=== PATIENT | female | born 1965 | race African-American/Black ===

== ENCOUNTER 2019-01-02 08:13 | Day surgery (SDC) | payer MEDICAID ==
[2019-01-02] VITALS (11 sets, daily range): BP systolic 94–138; BP diastolic 58–87; PULSE 88–107; TEMP 97.5–98.4
[~2019-01-02] VITALS: Ht 170.2 cm; Wt 129.0 kg
[~2019-01-02 08:13] MED LIST: ASCRIPTIN1 TAB PO; CYMBALTA 60MG60 MG PO; LOPRESSOR 550 MG/TAB PO; NORCO 325 MG-101 TAB PO; SYNTHROID0.1 MG/TAB PO
[2019-01-02] MEDS ORDERED: ASPIRIN E.C. 8181 MG PO (08:59)
[2019-01-02] MEDS ORDERED: KLONOPIN WAFE0.25 MG SL (09:09)
[2019-01-02] MEDS ORDERED: FLEXERIL 1010 MG/TAB PO (09:10)
[2019-01-02] MEDS ORDERED: BENTYL 20MG20 MG/TAB PO (09:12)
[2019-01-02] MEDS ORDERED: DESYREL 100MG100 MG PO (09:13)
[2019-01-02] MEDS ORDERED: MAXALT5 MG SL (09:14)
[2019-01-02] MEDS ORDERED: NEURONTIN800 MG/TAB (09:15)
[2019-01-02] MEDS ORDERED: PRIL40 PO (09:15)
[2019-01-02] MEDS ORDERED: NEURONTIN800 MG/TAB PO (09:16)
[2019-01-02 09:56] LABS: HEMATOCRIT 38.9 % (37.0-47.0); MEAN CELL VOLUME 92 fl (80.0-100.0); MEAN CORPUSCULAR HEMOGLOBIN 29 pg (27.0-31.0); MEAN CORPUSCULAR HGB CONC 31 g/dl (33.0-37.0); MEAN PLATELET VOLUME 9.3 fl (7.4-10.4); PLATELET COUNT 227 K/mm3 (130-400); RED BLOOD COUNT 4.21 M/mm3 (4.10-5.30); REDCELL DISTRIBUTION WIDTH-CV 12.1 % (11.5-14.5)
[2019-01-02 10:01] LABS: INR 0.9 (0.8-3.0); PROTHROMBIN TIME 10.8 SECONDS (9.7-12.8)
[2019-01-02] MEDS ORDERED: ZESTRIL 5MG5 MG PO (10:32)
[2019-01-02] MEDS ORDERED: PRINIVIL5 MG PO (10:33)
[2019-01-02 10:48] LABS: CALCIUM 9.7 mg/dL (8.4-10.2); CREATININE, serum 0.65 (0.52-1.25); POTASSIUM 4.1 mmol/L (3.4-5.0)
--- NOTE | 2019-01-02 11:05 | NUR ---
SEE MERGE REPORTS FOR MEDICATION ADMINISTRATION TIMES AND INTRA/POST PROCEDURE SEDATION ASSESSMENTS.
--- NOTE | 2019-01-02 13:00 | NUR ---
pt returned to eu 11 via bed from slab installer. pt is awake and alert, c/o "muscle spasms to lower back and right thigh, reviewed bedrest with pt and not bending of right leg, call light in reach. Dr Guthrie into see pt
--- NOTE | 2019-01-02 13:15 | NUR ---
pt does have TR band to right wrist, 14cc of air, no c/o of pain to site, site is soft, no swelling or signs of bleeding. checking pt right groin site every 10 min per order of Dr Guthrie, no changes in site
--- NOTE | 2019-01-02 13:30 | NUR ---
flexeril 10mg po given as ordered for muscle spasms, pt takes snack at this time
--- NOTE | 2019-01-02 13:53 | NUR ---
1300: PT TRANSFERED TO [facility] AT THIS TIME. DURING HANDOFF TO [facility] RN, RIGHT RADIAL PUNCTURE SITE EXAMINED. TR BAND IN PLACE, NO BLEEDING, HEMATOMA, BRUISING, OR OTHER VARIANCE NOTED. RIGHT FEMORAL PUNCTURE SITE ALSO EXAMINED WITH [facility] RN. SITE NOTED SOFT WITH NO BLEEDING, BRUISING, OR SIGN OF HEMATOMA NOTED. DISTAL PULSES ASSESSED PRIOR TO TRANSFER WITH PHYSICIAN PRESENT; WEAK WITH PALPATION BUT EASILY FOUND WITH DOPPLER. PULSES REASSESSED WITH [facility] RN AND REMAIN PALPABLE. FOOT WARM WITH APPROPRIATE CAPILLARY REFILL NOTED. INSTRUCTION FROM DR IRWIN TO ASSESS GROIN PUNCTURE Q10 MIN X1 HR RELAYED TO [facility] RN.
--- NOTE | 2019-01-02 14:15 | NUR ---
repostioned pt with small pillow behind back, keeping right leg straight, released air from band, no bleeding or swelling, released another 3cc, then in 5 min 5cc, no changes to site, site then dressed with bandaid/gauze and coban.
--- NOTE | 2019-01-02 14:30 | NUR ---
con't same, no c/o, watches tv
--- NOTE | 2019-01-02 15:30 | NUR ---
pt con't to c/o "back spasms" states does take the flexeril at home that usually helps, but has not helped, pt is tearful, repositioned pt, states uses heating pack at home, warm moist pack to lower back applied. pt states right thigh is better, but feels is having some lower bilateral abd. cramping at times. denies need to empty bladder., will con't to monitor
--- NOTE | 2019-01-02 16:15 | NUR ---
GAVE IV FENTANYL 25MCG AT 1615, PT STATES AT 1640 PAIN IS A 6 NOW FROM AN 8 TO BACK. AT 1645 PT SAT ON SIDE OF BED WITH ASSIST, STOOD AND WALKED, STATES IN MORNINGS IT TAKES AWHILE FOR BACK TO FEEL BETTER AFTER BEING IN BED. DISCUSSED DISCHARGE INST. WITH PT, PT HAS APPT FOR AT 1315 IN [place], NO NEW MED CHANGES, REVIEWED MED LIST. REVIEWED ACTIVITY FOR BOTH RADIAL AND FEMORAL SITE WITH VERBAL UNDERSTANDING. ALSO WHAT TO DO IN CASE OF BLEEDING AT EITHER SITE.
--- NOTE | 2019-01-02 17:15 | NUR ---
IV D'CD INTACT FROM LEFT AC, PT UP AND DRESSED, WALKS SLOWLY, PT DISCHARGED VIA W/C TO VETERINARY SURGEON THAT WAS CALLED FOR HER RIDE HOME
== END 2019-01-02 17:15 | disposition home or self-care (01) ==
LOC: COL.CAR 08:13
PROVIDERS: Internal Medicine Cardiovascular Disease
DX: I42.8 Other cardiomyopathies (principal); I11.0 Hypertensive heart disease with heart failure; I50.22 Chronic systolic (congestive) heart failure; E78.5 Hyperlipidemia, unspecified; Z79.899 Other long term (current) drug therapy; E03.9 Hypothyroidism, unspecified; Z86.711 Personal history of pulmonary embolism; Z90.49 Acquired absence of other specified parts of digestive tract; Z98.890 Other specified postprocedural states; Z82.49 Family history of ischemic heart disease and other diseases of the circulatory system; Z80.9 Family history of malignant neoplasm, unspecified; Z88.5 Allergy status to narcotic agent; J45.909 Unspecified asthma, uncomplicated; E66.9 Obesity, unspecified; Z68.41 Body mass index [BMI] 40.0-44.9, adult; R06.01 Orthopnea
CPT/HCPCS: J1644; J2250; J3010; Q9967